=== PATIENT | male | born 1965 | race Two or more races ===

== ENCOUNTER 2025-01-27 00:30 | Emergency (ER) | payer OTHER ==
[~2025-01-27] VITALS: Ht 167.6 cm; Wt 90.7 kg
[2025-01-27] MEDS ORDERED: NORVASC5 MG (00:36)
[2025-01-27] MEDS ORDERED: LIPITOR20 MG (00:37)
[2025-01-27] MEDS ORDERED: DIPHENHYDRAMINE HCL 50 MG/ML VIAL 1ML IV ONE (01:00)
[2025-01-27] MEDS ORDERED: SODIUM CHLORIDE 0.45 % 1,000 ML IV SCH (01:00)
[2025-01-27] MEDS ORDERED: ONDANSETRON HCL 2 MG/ML VIAL IV ONE (01:00)
[2025-01-27 01:59] LABS: HEMATOCRIT 39.2 % (39.0-48.0); HEMOGLOBIN 13.2 g/dL (13-16.00); MEAN CELL VOLUME 97.1 fL (80.0-100.00); MEAN CORPUSCULAR HEMOGLOBIN 32.7 pg (27.00-32.0); MEAN CORPUSCULAR HGB CONC 33.7 g/dl (32.0-36.0); PLATELET COUNT 259 K/uL (150-450); RED BLOOD COUNT 4.04 M/uL (4.00-6.00); RED CELL DISTRIBUTION WIDTH 13.3 % (11.5-14.5)
[2025-01-27 02:09] LABS: ALBUMIN 3.5 gm/dL (3.4-5.0); BILIRUBIN TOTAL 0.28 mg/dL (0.3-1.2); CALCIUM 9.2 mg/dL (8.5-10.1); CREATININE SERUM 1.23 mg/dL (0.70-1.30); GLOBULINA 4.5 G/DL (2.4-3.5); POTASSIUM 3.33 mEq/L (3.5-5.1)
[2025-01-27 02:16] LABS: GFR 59.82
[2025-01-27] MEDS ORDERED: ONDANSETRON ODT8 MG PO (02:51)
== END 2025-01-27 03:02 | disposition home or self-care (01) ==
LOC: ER 00:30
PROVIDERS: General Practice
DX: R11.2 Nausea with vomiting, unspecified (principal); F12.10 Cannabis abuse, uncomplicated; I10 Essential (primary) hypertension